=== PATIENT | male | born 1995 | race African-American/Black ===

== ENCOUNTER 2017-07-07 09:30 | Emergency (ER) | payer MEDICAID ==
[~2017-07-07] VITALS: Ht 172.7 cm; Wt 63.5 kg
--- NOTE | 2017-07-07 09:29 | Emergency Room Report ---
History of Present Illness General Chief Complaint: Behavioral Complaint Source: Patient, EMS Present Illness HPI 22-year-old male brought in by EMS mother called EMS to bring him to the ER for "psychiatric evaluation". She told EMS "something is not right." Patient himself is calm cooperative. States that he has seen a psychiatrist recently, but has trouble expressing himself, he is repeating the question I ask him, doesn't provide any qualifying information on will was discussed with psychiatrist. He states he was given some medication but he's not sure if he's taken it. He endorses drinking alcohol, smoking marijuana. He is asking for medication to "help me sleep." But then the next sentence states that he has been taking medication help him sleep. He otherwise denies SI, HI, AVH. Denies other medical problems Allergies: Coded Allergies: No Known Allergies (Unverified , 07/07/17) Patient History Past Medical History: unable to obtain Past Surgical History: unable to obtain Pertinent Family History: unable to obtain Social History: Reports: smoking, alcohol use, drug use Immunizations: UTD Reviewed Nursing Documentation: PMH: Agreed, PSxH: Agreed Nursing Documentation-PMH Past Medical History: No Stated History Review of Systems All Other Systems: negative except mentioned in HPI Physical Exam Vital Signs Date Time Temp Pulse Resp B/P (MAP) Pulse Ox O2 Delivery O2 Flow Rate FiO2 07/07/17 09:16 98.2 80 16 140/78 100 Room Air Sp02 EP Interpretation: reviewed, normal General Appearance: normal inspection, well appearing, no apparent distress, alert, GCS 15, non-toxic Head: normocephalic, atraumatic Eyes: bilateral eye PERRL, bilateral eye EOMI ENT: normal ENT inspection, hearing grossly normal, normal pharynx, no angioedema, normal voice, TMs + canals normal, uvula midline, moist mucus membranes Neck: normal inspection, full range of motion, supple, thyroid normal, no meningismus, no bony tend Respiratory: normal inspection, lungs clear, normal breath sounds, no rhonchi, no respiratory distress, no retraction, no accessory muscle use, no wheezing, speaking full sentences Cardiovascular #1: regular rate, rhythm, no edema, no JVD, normal capillary refill Gastrointestinal: normal inspection, normal bowel sounds, non tender, soft, no mass, no peritonitis, non-distended, no guarding, no hernia, no pulsatile mass Genitourinary: no CVA tenderness Musculoskeletal: normal inspection, back normal, normal range of motion, no calf tenderness, pelvis stable, Mariusz's Sign negative Neurologic: normal inspection, alert, oriented x3, responsive, landscape supervisor III-XII nml as tested, motor strength/tone normal, cerebellar normal, normal gait, speech normal Psychiatric: normal inspection, judgement/insight normal, mood/affect normal, no suicidal/homicidal ideation, other - patient difficultyexpressing himself, run-on sentences, repeating phrases Skin: normal inspection, normal color, no rash Lymphatic: normal inspection, no adenopathy Medical Decision Making Diagnostic Impression: Primary Impression: Behavioral change ER Course Labs unremarkable U. tox negative Aspirin, Tylenol levels are normal Patient continuing to exhibit disorganized thoughts However continues without SI or HI No AVH Medically cleared Pending PET Last Vital Signs Date Time Temp Pulse Resp B/P (MAP) Pulse Ox O2 Delivery O2 Flow Rate FiO2 07/07/17 09:16 98.2 80 16 140/78 100 Room Air Status: improved Disposition: XFER TO PSYCH HOSP/UNIT Condition: Stable Scripts No Active Prescriptions or Reported Meds SARAN LEE M.D. Jul 07, 2017 09:29
[2017-07-07 09:57] LABS: ANION GAP 5 mmol/L (5-15); CALCIUM 9.4 MG/DL (8.5-10.1); CARBON DIOXIDE 31 MMOL/L (21-32); CHLORIDE 105 MMOL/L (98-107); CREATININE 1.1 MG/DL (0.55-1.30); GLOMERULAR FILTRATION RATE > 60 mL/min (>60); POTASSIUM 4.5 MMOL/L (3.5-5.1); SODIUM 141 MMOL/L (136-145)
[2017-07-07 09:59] LABS: BASOPHILS % (AUTO) 1.6 % (0.0-2.0); EOSINOPHILS % (AUTO) 1.3 % (0.0-3.0); LYMPHOCYTES % (AUTO) 36.6 % (20.0-45.0); MEAN CORPUSCULAR HEMOGLOBIN 29.8 PG (27.0-31.0); MEAN CORPUSCULAR HGB CONC 32.5 G/DL (32.0-36.0); MEAN CORPUSCULAR VOLUME 92 FL (80-99); MEAN PLATELET VOLUME 7.4 FL (6.5-10.1); MONOCYTES % (AUTO) 6.9 % (1.0-10.0); NEUTROPHILS % (AUTO) 53.7 % (45.0-75.0); PLATELET COUNT 238 K/UL (150-450); RED BLOOD COUNT 5.24 M/UL (4.70-6.10); RED CELL DISTRIBUTION WIDTH 11.8 % (11.6-14.8); WHITE BLOOD COUNT 4.1 K/UL (4.8-10.8)
[2017-07-07 10:01] LABS: ALANINE AMINOTRANSFERASE 14 U/L (12-78); ALBUMIN/GLOBULIN RATIO 1.1 (1.0-2.7); ALCOHOL < 3 mg/dL; ASPARTATE AMINO TRANSFERASE 12 U/L (15-37); TOTAL PROTEIN 7.8 G/DL (6.4-8.2)
[2017-07-07 10:03] LABS: ACETAMINOPHEN < 2 MCG/ML (10-30)
[2017-07-07 11:10] VITALS: BP 151/62
[2017-07-07 13:33] LABS: APPEARANCE,URINE SLIGHTLY CLOUDY; KETONES,URINE NEGATIVE (NEGATIVE); LEUKOCYTE ESTERASE ,URINE 1+ (NEGATIVE); NITRITE,URINE NEGATIVE (NEGATIVE); PH,URINE 7 (4.5-8.0); PROTEIN,URINE NEGATIVE (NEGATIVE); UROBILINOGEN,URINE NORMAL MG/DL (0.0-1.0)
[2017-07-07 13:52] LABS: AMORPHOUS SEDIMENT,UR MODERATE /LPF; BACTERIA,URINE OCCASIONAL /HPF; RBC,URINE 0 /HPF (0 - 0); SQUAMOUS EPITHELIAL CELL,UR OCCASIONAL /LPF (NONE/OCC); WBC,URINE 0-2 /HPF (0 - 0)
[2017-07-07 17:55] VITALS: BP 134/78
[2017-07-07 22:45] VITALS: BP 122/80
[2017-07-08 00:14] VITALS: BP 154/78
[2017-07-08 00:16] VITALS: BP 154/78
== END 2017-07-08 00:16 ==
LOC: EMR 09:30 → EDBD 09:30 → EMR 07-08 00:16
DX: F91.9 Conduct disorder, unspecified (principal); F17.200 Nicotine dependence, unspecified, uncomplicated; F12.10 Cannabis abuse, uncomplicated; F10.10 Alcohol abuse, uncomplicated
CPT/HCPCS: 36415; 80053; 80307; 80329; 81001; 85025; 99285